=== PATIENT | female | born 1965 | race African-American/Black ===

== ENCOUNTER 2017-04-21 12:18 | Emergency (ER) | payer BC ==
[~2017-04-21] VITALS: Ht 165.1 cm; Wt 76.2 kg
[~2017-04-21 12:18] MED LIST: MULT1TAB52 PO
[2017-04-21 12:25] VITALS: BP 161/84
[2017-04-21] MEDS ORDERED: FLUORESCEIN OPHTH TEST STRIP. OS ONE (12:45)
[2017-04-21] MEDS ORDERED: TETRACAINE 0.5% OPHTH SOLUTION 4ML BOTTLE. OS ONE (12:45)
--- NOTE | 2017-04-21 13:15 | PHYS DOC ---
Past Medical History Past Medical History: No Pertinent History Past Surgical History: No Surgical History Alcohol Use: Occasionally Drug Use: None Adult General Chief Complaint Chief Complaint: EYE PROBLEMS [facility] HPI Patient is a 51 year old female who presents with three-day history gradual onset left eye pain and redness with clear drainage no decrease in vision but some photophobia; no involvement of the right eye; no contact use, uses reading glasses; denies trauma or foreign body. No prior history of neurologic issues or eye problems. Review of Systems Review of Systems Constitutional: Denies fever or chills [] Eyes: Denies change in visual acuity, redness, or eye pain [] HENT: Denies nasal congestion or sore throat [] Respiratory: Denies cough or shortness of breath [] Cardiovascular: No additional information not addressed in HPI [] GI: Denies abdominal pain, nausea, vomiting, bloody stools or diarrhea [] : Denies dysuria or hematuria [] Musculoskeletal: Denies back pain or joint pain [] Integument: Denies rash or skin lesions [] Neurologic: Denies headache, focal weakness or sensory changes [] Endocrine: Denies polyuria or polydipsia [] All other systems were reviewed and found to be within normal limits, except as documented in this note. Current Medications Current Medications Current Medications Medications (Trade) Dose Ordered Sig/Eda Start Time Stop Time Status Last Admin Dose Admin Fluorescein Sodium (Ful-Niecy) 1 strip 1X ONCE 04/21/17 12:45 04/21/17 12:52 DC 04/21/17 12:58 1 STRIP Tetracaine HCl (Tetracaine) 1 drop 1X ONCE 04/21/17 12:45 04/21/17 12:52 DC 04/21/17 12:58 1 DROP Allergies Allergies Allergies Coded Allergies Type Severity Reaction Last Updated Verified No Known Drug Allergies 03/07/14 No Physical Exam Physical Exam Constitutional: Well developed, well nourished, no acute distress, non-toxic appearance. [] HENT: Normocephalic, atraumatic, bilateral external ears normal, oropharynx moist, no oral exudates, nose normal. [] Eyes: PERRLA, EOMI, conjunctiva normal except slight injection left eye, no discharge. Quintana lamp exam: Tetracaine fluorescein stain applied lids everted no foreign body seen anterior chambers clear sclerae injected no foreign body noted no diarrhea uptake no abrasion of the cornea. Tonopen used intraocular pressure in the left eye is 15 normal. No ulcers or lesions seen. No papilledema on funduscopic exam.[] Neck: Normal range of motion, no tenderness, supple, no stridor. [] Cardiovascular:Heart rate regular rhythm, no murmur [] Lungs & Thorax: Bilateral breath sounds clear to auscultation [] Abdomen: Bowel sounds normal, soft, no tenderness, no masses, no pulsatile masses. [] Skin: Warm, dry, no erythema, no rash. [] Back: No tenderness, no CVA tenderness. [] Extremities: No tenderness, no cyanosis, no clubbing, ROM intact, no edema. [] Neurologic: Alert and oriented X 3, normal motor function, normal sensory function, no focal deficits noted. [] Psychologic: Affect normal, judgement normal, mood normal. [] Current Patient Data Vital Signs Vital Signs Date Time Temp Pulse Resp B/P (MAP) Pulse Ox O2 Delivery O2 Flow Rate FiO2 04/21/17 12:25 97.5 58 16 100 Room Air 97.5 EKG EKG [] Radiology/Procedures Radiology/Procedures [] Course & Med Decision Making Course & Med Decision Making Pertinent Labs and Imaging studies reviewed. (See chart for details) The patient states she has follow-up with an eye doctor if symptoms don't improve in the next 24-48 hours.[] Dragon Disclaimer Dragon Disclaimer This electronic medical record was generated, in whole or in part, using a voice recognition dictation system. Departure Departure Impression: Primary Impression: Conjunctivitis, left eye Disposition: HOME, SELF-CARE Condition: STABLE Referrals: NO PCP (PCP) Patient Instructions: Conjunctivitis (Viral and Bacterial) Scripts Ciprofloxacin Hcl (CILOXAN) 5 Ml Drops 1 DROP OS 6XDAY for 5 Days, #5 ML Prov: DAE GOINS MD 04/21/17 DAE GOINS MD Apr 21, 2017 13:15
[2017-04-21] MEDS ORDERED: CIPR5DRO OS (13:17)
== END 2017-04-21 13:40 | disposition home or self-care (01) ==
LOC: ER 12:18
DX: H10.9 Unspecified conjunctivitis (principal)
CPT/HCPCS: 99283